=== PATIENT | male | born 1985 | race African-American/Black ===

== ENCOUNTER 2018-12-26 08:28 | Emergency (ER) | payer OTHER, SELFPAY ==
[2018-12-26] MEDS ORDERED: Acetaminophen/Codeine 30-300mg Tablet ONE (08:50)
== END 2018-12-26 08:49 | disposition home or self-care (01) ==
LOC: BURERS 08:28
DX: M54.5 Low back pain (principal); I10 Essential (primary) hypertension; E78.5 Hyperlipidemia, unspecified; F31.9 Bipolar disorder, unspecified; Z79.899 Other long term (current) drug therapy
CPT/HCPCS: 99283